=== PATIENT | female | born 1965 | race Two or more races ===

== ENCOUNTER 2021-10-23 08:35 | Outpatient (CLI) | payer OTHER ==
[~2021-10-23 08:35] MED LIST: LOSARTAN POTASS50 MG PO; SYNTHROID75 MCG PO
== END 2021-10-23 08:48 | disposition home or self-care (01) ==
LOC: LAB 08:35
PROVIDERS: ATTEND Orthopaedic Surgery Hand Surgery
DX: Z11.52 Encounter for screening for COVID-19 (principal); Z20.828 Contact with and (suspected) exposure to other viral communicable diseases; Z03.818 Encounter for observation for suspected exposure to other biological agents ruled out

== ENCOUNTER 2021-10-27 06:25 | Day surgery (SDC) | payer OTHER | END 2021-10-27 12:00 | disposition home or self-care (01) | LOC: CIR.AMB 06:25 | PROVIDERS: ATTEND Orthopaedic Surgery Hand Surgery | DX: M65.331 Trigger finger, right middle finger (principal); Z20.822 Contact with and (suspected) exposure to COVID-19 ==